=== PATIENT | female | born 1995 | race Caucasian/White ===

== ENCOUNTER 2021-11-05 03:09 | Inpatient (IN) | payer BC, SELFPAY ==
[2021-11-05] VITALS (23 sets, daily range): BP systolic 121–157; BP diastolic 71–89; PULSE 91–111; RESP 12–25; TEMP 36.1–36.9; O2SAT 98–100; BMI 41.8
--- NOTE | ~2021-11-05 | XR_ITS ---
EXAMINATION: XR chest 2V DATE: 11/05/2021 04:09 INDICATION: Shortness of breath. TECHNIQUE: Frontal and lateral views of the chest were obtained. COMPARISON: None. FINDINGS: The chest demonstrates clear lungs without pneumonia, pleural effusion, or pneumothorax. Th e heart size is normal. IMPRESSION: 1. No acute cardiopulmonary disease. Reviewed, dictated and finalized at location A. [facility] [employer] COORDINATOR
--- NOTE | ~2021-11-05 | US_ITS ---
EXAMINATION: US abdomen limited DATE: 11/05/2021 07:30 INDICATION: Acute pancreatitis TECHNIQUE: Multiple grayscale and Doppler ultrasound images of the abdomen were obtained. COMPARISON: None available FINDINGS: Bowel gas obscures visualization of the pancreas. The visualized portions of the pancreas a re unremarkable. The liver is normal with normal echogenicity and echotexture. No surface nodularity. Normal hepatopetal flow in the main portal vein. There is no pericholecystic fluid. There are two po lyps of the gallbladder which measure up to 4 mm. The normal common bile duct measures 4 mm. There wa s no sonographic Evans sign. IMPRESSION: 1. No sonographic correlate for the patient's symptoms. 2. Gallbladder polyps. Reviewed, dictated and finalized at location B. MAKER
--- NOTE | 2021-11-05 03:22 | ECG_ITS ---
Measurements Intervals [place] Rate: 112 P: 26 MN: 155 QRS: -3 QRSD: 85 T: 1 QT: 307 QTc: 420 Interpretive Statements SINUS TACHYCARDIA LOW VOLTAGE QRS PRECORDIAL LEADS BASELINE ARTIFACT BORDERLINE ECG NO PREVIOUS ECG AVAILABLE FOR COMPARISON Electronically Signed On 11-05-2021 14:06:05 [employer] by Diaz Matthews M.D.
--- NOTE | 2021-11-05 03:32 | ED.GENADULT ---
HPI - General Adult General Chief complaint: Chest Pain Stated complaint: chest pain Time Seen by Provider: 11/05/21 03:13 Source: patient and RN notes reviewed Mode of arrival: ambulatory Limitations: no limitations History of Present Illness HPI narrative: This is a 25 year old female approximately 30 weeks GA who presents for evaluation of bilateral flank pain. She woke up this morning with bilateral flank pain. She states her pain has been constant and it feels like a band is wrapped around her chest. She called her OB and it was recommended for her to take tums, pepcid and tylenol. She continued to have pain so she came to ER for evaluation. Her pain was initially severe but she reports it has improved. She reports mild sob due to pain. She also reports nausea. She denies cough, fever, or urinary complaints. She denies any issues with . She denies history of gallbladder disease. Related Data Home Medications Medication Instructions Recorded Confirmed Classic 1 tablet PO DAILY 11/05/21 11/05/21 Allergies Allergy/AdvReac Type Severity Reaction Status Date / Time No Known Allergies Allergy Verified 11/05/21 03:27 Review of Systems Review of Systems: All systems reviewed & are unremarkable except as noted in HPI and below PMFSH Past Medical History Medical History (Updated 11/05/21 @ 04:56 by Ernestina Knapp MD) Patient denies medical problems Social History Social History (Updated 11/05/21 @ 04:35 by Ernestina Knapp MD) Smoking status: Never smoker Alcohol intake: never Exam Const: General: no acute distress and alert Orientation/consciousness: patient oriented x3 Eyes: EOM: EOMs intact bilaterally Resp: Effort & Inspection: normal respiratory effort and no retractions Auscultation: clear to auscultation bilaterally Cardio: Rate: tachycardic Rhythm: regular rhythm Heart sounds: no murmurs GI: GI Palp: Yes Soft to palpation, Yes Tenderness to palpation present (GI) (bilateral upper quadrant), No Guarding due to palpation present (GI) and No Rigid due to palpation Auscultation: normal bowel sounds Other: gravid Back/Spine/Pelvis: Back: no CVA tenderness Skin: General skin exam: normal color Rashes: no rashes Neuro: General: patient oriented x3, moves all extremities and CN's II-XI intact bilaterally Extrem: General: normal to inspection Psych: Mental Status: mental status grossly normal Affect: normal affect Course Reevaluation(s) Reevaluation #1: I performed bedside US , no gallstones seen. On review of labs , patient has pancreatitis. I have discussed diagnosis with patient and . Date: 11/05/21 Time: 04:36 Consultations Consultation #1: I discussed case with DR. Price. He accepts admission on Labor and Delivery and he request hospitalist consultation. Date: 11/05/21 Time: 04:54 Vital Signs Vital signs: Vital Signs Blood Pressure 157/86 H 11/05/21 03:16 Temperature 97.8 F 11/05/21 06:16 Pulse Rate 97 11/05/21 06:16 Respiratory Rate 18 11/05/21 06:16 Blood Pressure 133/74 11/05/21 06:16 Pulse Oximetry 98 11/05/21 05:15 Medical Decision Making Vital Signs Vital Signs: Vital Signs Blood Pressure 157/86 H 11/05/21 03:16 Temperature 97.8 F 11/05/21 06:16 Pulse Rate 97 11/05/21 06:16 Respiratory Rate 18 11/05/21 06:16 Blood Pressure 133/74 11/05/21 06:16 Pulse Oximetry 98 11/05/21 05:15 Lab Data Lab results reviewed: Yes I reviewed the patient's lab results. Result diagrams: 11/05/21 03:25 11/05/21 03:25 Labs: Lab Results 11/05/21 11/05/21 11/05/21 Range/Units 03:25 03:25 03:25 WBC 16.1 H (4.5-10.0) K/mm3 RBC 4.40 (4.2-5.4) M/mm3 Hgb 12.2 (12.0-15.0) g/dL Hct 38.6 (37.0-47.0) % MCV 87.7 (80-100) fl MCH 27.7 (26-34) pg MCHC 31.6 L (32-36) g/dl RDW 13.8 (11.5-14.5) % Plt Count 423 H (
[2021-11-05 03:35] LABS: Basophils Percent Auto 0.2 % (0.2-1.2); Eosinophils Absolute Auto 0.1 K/mm3 (0-0.3); Eosinophils Percent Auto 0.9 % (0-4.4); Hematocrit 38.6 % (37.0-47.0); Hemoglobin 12.2 g/dL (12.0-15.0); Immature Granulocyte Absolute 0.13 K/mm3 (0.00-0.031); Immature Granulocyte Percent A 0.8 % (0-0.5); Lymphocytes Absolute Auto 1.93 K/mm3 (0.9-3.2); Mean Corpuscular HGB Conc 31.6 g/dl (32-36); Mean Corpuscular Hemoglobin 27.7 pg (26-34); Mean Corpuscular Volume 87.7 fl (80-100); Mean Platelet Volume 9.9 fl (7.4-10.4); Monocytes Absolute Auto 0.8 K/mm3 (0.1-0.6); Monocytes Percent Auto 5.2 % (2.6-8.5); Neutrophils Absolute Auto 13.1 K/mm3 (1.3-6.7); Neutrophils Percent Auto 80.9 % (45.5-73.1); Platelet Count Result 423 k/mm3 (150-375); Red Cell Distribution Width 13.8 % (11.5-14.5); White Blood Count 16.1 K/mm3 (4.5-10.0)
[2021-11-05] MEDS: LACTATED RINGERS 1,000 ML 999 ML IV CONT (03:35)
[2021-11-05 03:46] LABS: Add Urine Microscopic? YES; Appearance Urine Cloudy (Clear); Bacteria Urine Trace /hpf; Bilirubin Urine Negative (Negative); Blood Urine Negative (Negative); Color Urine Yellow (Yellow); Glucose Urine UA 2+ mg/dL (Negative); Ketones Urine Trace mg/dL (Negative); Leukocyte Esterase Ur Negative LEU/UL (Negative); Mucus Urine Rare /lpf; Nitrate Urine Negative (Negative); Protein Urine Negative (Negative); RBC Urine 0-2 /hpf (0-2); Specific Grav Ur 1.015 (1.001-1.035); Squamous Epithelial Cell Urine Many /hpf (Few); Urobilinogen Urine Negative mg/dL (<2.0)
[2021-11-05 03:50] LABS: Prothrombin Time 12.7 Seconds (11.1-14.7)
[2021-11-05 03:51] LABS: Partial Thromboplastin Time 29.3 SECONDS (22.3-36.8)
[2021-11-05 04:02] LABS: Troponin I < 0.012 ng/mL (0.000-0.034)
[2021-11-05 04:14] LABS: Alanine Aminotransferase 30 U/L (4-35); Albumin Level 3.9 g/dL (3.5-5.1); Alkaline Phosphatase 119 U/L (38-126); Anion Gap 8 mmol/L (8-16); Aspartate Amino Transferase 60 U/L (14-36); Bilirubin,Total 0.8 mg/dL (0.2-1.3); Blood Urea Nitrogen 8 mg/dL (7-17); Calcium 9.4 mg/dL (8.4-10.2); Carbon Dioxide 23 mmol/L (22-30); Chloride 106 mmol/L (98-107); Estimated CRCL calculation 173 ml/min; Estimated Glomerular Filt Rate > 60; Glucose 118 mg/dL (65-110); Lactate Dehydrogenase 410 U/L (313-618); Potassium 3.9 mmol/L (3.4-5.0); Sodium 137 mmol/L (137-145)
[2021-11-05 04:15] LABS: Lipase 2252 U/L (23-300)
--- NOTE | 2021-11-05 05:31 | OBADM ---
This patient, Kathy Wheeler, admitted to the OB room [facility] for observation. Patient/family oriented to hospital policies and general routines including ID bracelet, bed and alarms, visiting hours, pain management, procedures, bathroom and other care routines, personal items, smoking policy, room service/diet, and visiting hours. Patient/Family are encouraged to report perceived risks to care and to ask questions if they do not understand what they are told or what they should do.
[2021-11-05] MEDS: SODIUM CHLORIDE 0.9% IV 1,000 ML 125 ML IV CONT ×3 (06:20→23:00)
--- NOTE | 2021-11-05 09:43 | PM.IMCN ---
Assessment and Plan Assessment and plan (1) Acute pancreatitis: Qualifiers: Acute pancreatitis complication: unspecified Pancreatitis type: unspecified pancreatitis type Qualified Code(s): K85.90 - Acute pancreatitis without necrosis or infection, unspecified Code(s): K85.90 - Acute pancreatitis without necrosis or infection, unspecified Status: Acute Assessment and Plan: Patient presents with bilateral lower chest bandlike pain of acute onset. Lipase markedly elevated on admission. Abdominal ultrasound showing gallbladder polyps but no other acute findings. The pancreas was obscured by bowel gas. Unable to perform CT. Pain is improved. Consider that she passed a gallstone. Will need to monitor to ensure that her liver enzymes and lipase trend to normal. will start clear liquid diet today and advance as tolerated. Repeat labs in morning. Would recommend general surgery consult timeframe for further evaluation and consideration for cholecystectomy. (2) : Qualifiers: Weeks of gestation: 30 weeks Qualified Code(s): Z3A.30 - 30 weeks gestation of Code(s): Z34.90 - Encounter for supervision of normal , unspecified, unspecified trimester Status: Acute Assessment and Plan: female currently 30 weeks gestational age. Patient states she is having normal movement. Currently being monitored in the OB department with normal heart tones. Glucose noted but felt related to stress rsponse. She does have 2+ glucose in her urie as well. Will add AccuCheks and sliding scale insulin to further assess. Continue vitamin. Further instruction per primary team. (3) Elevated AST (SGOT): Code(s): R74.01 - Elevation of levels of liver transaminase levels Status: Acute Assessment and Plan: On presentation, AST slightly elevated at 60. No concerning findings by ulrasound. Most likely related to above. Will continue to follow-up. This should resolve with resolution of her other symptoms. Further evaluation if needed. (4) Leukopenia: Code(s): D72.819 - Decreased white blood cell count, unspecified Status: Acute Assessment and Plan: White count on admission is 16K with a mild left shift. Chest x-ray clear. Urinalysis not consistent with UTI. Most likely demargination from her acute symptoms. Doubtful this is related to active infection. Continue to follow. Additional Plan Thank you so much for allowing me to be part of this patient's care. Will continue to follow along with you. HPI Data of Consult Consult date: 11/05/21 Requesting Physician: Nitish Price MD Primary Care Provider: Nitish Price MD Consult Narrative Narrative: Kathy Wheeler is a 25 year old female who is 30wks GA here for bilateral lower chest pain and found to have pancreatitis. patient has had morning sickness 1st 20 weeks more recently with complaints hip pain but otherwise no oher significant problems with the . more recently she has been having dyspnea on exertion over the past week or so felt related to the size of her abdomen. She denies any abdominal pain after fatty meals. No nausea or vomiting recently. She was feeling well until around 1:00 a.m. on the morning of admission when she woke with bilateral lower chest pain. It felt like a band under her breasts radiated to the back. It was constant. She called her OB who recommended Pepcid and Tums. No slight benefit with this regiment but then the pain worsened again. Pain never completely subsided. She had nausea but no vomiting. No diarrhea. No lower abdominal pain. No vaginal discharge. No vaginal bleeding. no dysuria or hematuria. No fever or chills. No history of gallbladder disease or pancreatitis. She does have a family history of gallbladder disease with her grandfather and uncle having the gallbladder is removed
[2021-11-05 10:46] LABS: Glucose Point of Care 89 mg/dl (65-105)
--- NOTE | 2021-11-05 17:46 | PM.IMHP ---
H&P: HPI History of Present Illness Date/Time: 11/05/21 17:46 25 y/o G1 at 30 6/7 weeks who was awakened this morning with pain in a tight band around her chest. She came to the ED and was found to have elevated lipase, diagnosed with pancreatitis. A bedside abdominal ultrasound exam elicited epigastric tenderness in the ED. Her pain has since resolved. A subsequent RUQ ultrasound exam in radiology was not painful. She has no pain now. She has good movement. No headaches or visual field change. She has noticed a few elevated bp readings. Chief Complaint: Pain Review of Systems Review of Systems: All systems reviewed & are unremarkable except as noted in HPI and below PMFSH Past Medical History Medical History Patient denies medical problems Surgical History Surgical History No pertinent past surgical history Family History Family History Father Hypertension Mother Hypertension Diabetes mellitus Social History Social History Social History: Essentially a lifelong nonsmoker. No alcohol use currently. No history of drug use. Lives at home with her . They have 2 dogs. She is a full code. Smoking status: Never smoker Alcohol intake: never Meds Home Medications and Allergies Home Medications Medication Instructions Recorded Confirmed Type Classic 1 tablet PO HS 11/05/21 11/05/21 History Allergies Allergy/AdvReac Type Severity Reaction Status Date / Time No Known Allergies Allergy Verified 11/05/21 03:27 Vital Signs Vital Signs - 24 hr 11/05/21 03:16 11/05/21 03:17 11/05/21 03:18 Temperature 36.1 C L Pulse Rate 109 H 111 H Respiratory Rate 12 17 Blood Pressure 157/86 H 157/86 H Pulse Oximetry 100 11/05/21 03:30 11/05/21 03:31 11/05/21 03:41 Temperature Pulse Rate 97 93 101 H Respiratory Rate 20 23 H Blood Pressure 133/89 Pulse Oximetry 11/05/21 03:45 11/05/21 03:46 11/05/21 04:01 Temperature Pulse Rate 95 96 106 H Respiratory Rate 25 H 23 H 20 Blood Pressure 131/82 Pulse Oximetry 11/05/21 04:15 11/05/21 04:30 11/05/21 04:44 Temperature Pulse Rate 96 105 H 94 Respiratory Rate 20 22 H 15 Blood Pressure 141/87 H 141/87 H Pulse Oximetry 11/05/21 04:45 11/05/21 05:15 11/05/21 05:31 Temperature 36.1 C L Pulse Rate 97 93 91 Respiratory Rate 17 20 Blood Pressure 131/80 141/87 H Pulse Oximetry 98 11/05/21 05:44 11/05/21 06:16 11/05/21 08:44 Temperature 36.6 C 36.6 C Pulse Rate 97 98 Respiratory Rate 18 Blood Pressure 133/74 135/84 Pulse Oximetry 11/05/21 12:04 11/05/21 13:01 11/05/21 16:06 Temperature 36.3 C L Pulse Rate 106 H 93 95 Respiratory Rate 18 Blood Pressure 121/76 141/71 H 148/79 H Pulse Oximetry Exam Const: Orientation/consciousness: patient oriented x3 Other: Well-developed, well-nourished female in no acute distress. Neck: Thyroid: thyroid normal Lymphatic: no lymphadenopathy noted (in neck, axilla or inguinal nodes) Resp: Effort & Inspection: normal respiratory effort Auscultation: clear to auscultation bilaterally Cardio: Rate: regular rate Rhythm: regular rhythm Heart sounds: S1 normal heart sound present and S2 normal heart sound present GI: Other: ABD: Soft, nontender, nondistended, gravid. NST good variability. TOCO: no contractions. No guarding or rebound tenderness. No hepatosplenomegaly. : General: Yes no CVA tenderness Other: Deferred. Back/Spine/Pelvis: Back: no CVA tenderness Skin: General skin exam: normal color and no rashes or lesions noted Neuro: General: patient oriented x3 Extrem: Other: Extremities: nontender with no edema Psych: Mental Status: mental status grossly normal Affect: chidi
[2021-11-05] MEDS: FAMOTIDINE 20 MG TABLET PO (20:23)
[2021-11-06 00:06] VITALS: BP 128/71; PULSE 93; TEMP 36.6
[2021-11-06 04:48] VITALS: BP 119/66; PULSE 89; TEMP 36.9
[2021-11-06 05:14] LABS: Alanine Aminotransferase 41 U/L (4-35); Albumin Level 3.1 g/dL (3.5-5.1); Alkaline Phosphatase 111 U/L (38-126); Anion Gap 5 mmol/L (8-16); Aspartate Amino Transferase 43 U/L (14-36); Basophils Percent Auto 0.2 % (0.2-1.2); Blood Urea Nitrogen 3 mg/dL (7-17); Calcium 7.9 mg/dL (8.4-10.2); Carbon Dioxide 20 mmol/L (22-30); Chloride 111 mmol/L (98-107); Eosinophils Absolute Auto 0.2 K/mm3 (0-0.3); Eosinophils Percent Auto 1.7 % (0-4.4); Estimated CRCL calculation 212 ml/min; Estimated Glomerular Filt Rate > 60; Glucose 71 mg/dL (65-110); Hematocrit 31.9 % (37.0-47.0); Hemoglobin 10.2 g/dL (12.0-15.0); Immature Granulocyte Absolute 0.11 K/mm3 (0.00-0.031); Immature Granulocyte Percent A 1.1 % (0-0.5); Lipase 456 U/L (23-300); Lymphocytes Absolute Auto 1.96 K/mm3 (0.9-3.2); Mean Corpuscular Hemoglobin 28.2 pg (26-34); Mean Corpuscular Volume 88.1 fl (80-100); Monocytes Absolute Auto 0.7 K/mm3 (0.1-0.6); Monocytes Percent Auto 6.4 % (2.6-8.5); Neutrophils Absolute Auto 7.4 K/mm3 (1.3-6.7); Neutrophils Percent Auto 71.6 % (45.5-73.1); Platelet Count Result 324 k/mm3 (150-375); Potassium 3.6 mmol/L (3.4-5.0); Red Blood Count 3.62 M/mm3 (4.2-5.4); Red Cell Distribution Width 13.9 % (11.5-14.5); Sodium 136 mmol/L (137-145); White Blood Count 10.3 K/mm3 (4.5-10.0)
[2021-11-06] MEDS: SODIUM CHLORIDE 0.9% IV 1,000 ML 125 ML IV CONT (07:00)
[2021-11-06 07:10] VITALS: TEMP 36.8
[2021-11-06 07:13] VITALS: BP 135/78; PULSE 94
--- NOTE | 2021-11-06 08:10 | PM.IMPN ---
Progress Note: A&P Assessment and Plan (1) Acute pancreatitis: Qualifiers: Acute pancreatitis complication: unspecified Pancreatitis type: unspecified pancreatitis type Qualified Code(s): K85.90 - Acute pancreatitis without necrosis or infection, unspecified Code(s): K85.90 - Acute pancreatitis without necrosis or infection, unspecified Status: Acute Assessment and Plan: Patient presents with bilateral lower chest bandlike pain of acute onset. Lipase markedly elevated on admission. Abdominal ultrasound showing gallbladder polyps but no other acute findings. The pancreas was obscured by bowel gas. Unable to perform CT. Pain has resolved. Consider that she passed a gallstone or possibly from sludge. AST mildly elevated at 60 but better today. ALT up slightly but felt this was in response to the original event and just lagging behind. Toelrating Full liquids. Lipase down to 456. Advance diet to low fat diet. Would recommend general surgery consult timeframe for further evaluation and consideration for cholecystectomy. (2) : Qualifiers: Weeks of gestation: 30 weeks Qualified Code(s): Z3A.30 - 30 weeks gestation of Code(s): Z34.90 - Encounter for supervision of normal , unspecified, unspecified trimester Status: Acute Assessment and Plan: female currently 30 weeks gestational age. Normal heart tones per RN. BP noted on admission but improved now. Elevated BP probably related to pain. Glucose noted but felt related to stress response and now normal on repeat. Continue AccuCheks and sliding scale insulin to further assess. Patient is being evaluated for preeclampsia. Continue vitamin. Further instruction per primary team. (3) Elevated AST (SGOT): Code(s): R74.01 - Elevation of levels of liver transaminase levels Status: Acute Assessment and Plan: On presentation, AST slightly elevated at 60. No concerning findings by ultrasound to explain the elevated liver test. Most likely related to above with either passed GS or fron biliary sludge. AST better at 43. ALT up to 41 but probably also related to above and just lagging behind. Pre-eclampsia being considered as well. Will continue to follow-up. This should continue to resolve with resolution of her other symptoms. Further evaluation if needed. (4) Leukopenia: Code(s): D72.819 - Decreased white blood cell count, unspecified Status: Acute Assessment and Plan: White count on admission is 16K with a mild left shift. Chest x-ray clear. Urinalysis not consistent with UTI. Most likely demargination from her acute symptoms. Doubtful this is related to active infection. Repeat WBC better. Subjective Date/time seen: 11/06/21 08:10 Interval history: 25yo female with IUP at 30weeks here for abdominal pain and found to have pancreatitis. Patient no longer having abdominal pain. She is passing flatus but no BMs. She denies n/v. She is tolerating the current diet with symptoms. Exam Narrative: AF 98.3 135/78 94 18 98% ra Gen - NARD Chest - CTA bilaterally. nml RR CV - RRR. S1-S2 Abd - abdomen was soft. abdomen. Nontender. +BS. Ext - no pedal edema. Psych - normal mood and affect. Patient is pleasant and cooperative. Skin - warm and dry. Objective Data Vital Signs Vital Signs: Vital Signs - 24 hr 11/05/21 08:44 11/05/21 12:04 11/05/21 13:01 Temperature Pulse Rate 98 106 H 93 Respiratory Rate Blood Pressure 135/84 121/76 141/71 H 11/05/21 16:06 11/05/21 19:38 11/05/21 20:00 Temperature 97.3 F L 98.5 F Pulse Rate 95 100 Respiratory Rate 18 Blood Pressure 148/79 H 129/78 11/06/21 00:06 11/06/21 04:48 11/06/21 07:10 Temperature 97.8 F 98.4 F 98.3 F Pulse Rate 93 89 Respiratory Rate Blood Pressure 128/71 119/66 11/06/21 07:13 Temperature Pulse Rate
--- NOTE | 2021-11-06 11:36 | PM.DS ---
DS: Admitting Diagnosis Discharge Date 11/06/21 Admitting Diagnosis acute pancreatitis intrauterine in the 3rd trimester DS: Summary Hospital Course Hospital Course: 25 y/o G1 at 31 weeks who presented with abdominal and chest pain. She came to the ED and was found to have elevated lipase, diagnosed with pancreatitis. A bedside abdominal ultrasound exam elicited epigastric tenderness in the ED. A subsequent RUQ ultrasound exam in radiology was not painful. She has no pain now. She has good movement. No headaches or visual field change. She has noticed a few elevated bp readings. Pt elevated enzymes have trended downward. She is now tolerating a low fat diet and denies any further pain. Status at Discharge Functional status at discharge: independent ambulation Overall status at discharge: patient is progressing back to baseline Time Spent with Patient Time attestation: Total time spent providing and/or coordinating discharge services: Time spent: Less than 30 minutes Exam Const: General: cooperative and healthy appearing Eyes: General: appearance normal, both eyes and all related structures Resp: Effort & Inspection: normal respiratory effort and able to speak in complete sentences Cardio: Rate: regular rate Rhythm: regular rhythm GI: Inspection: normal to inspection, non-distended and other (Gravid) GI Palp: No abdominal tenderness, Yes Soft to palpation, No Tenderness to palpation present (GI), No Guarding due to palpation present (GI) and No Rebound tenderness present Skin: General skin exam: normal color Neuro: General: patient oriented x3 DS: Data Data Completed and Pending Labs on day of discharge: Labs from last 24 hours 11/06/21 11/06/21 04:56 04:56 WBC 10.3 H RBC 3.62 L Hgb 10.2 L Hct 31.9 L MCV 88.1 MCH 28.2 MCHC 32.0 RDW 13.9 Plt Count 324 MPV 10.0 Immature Gran % (Auto) 1.1 H Neut % (Auto) 71.6 Lymph % (Auto) 19.0 Kaufman % (Auto) 6.4 Eos % (Auto) 1.7 Baso % (Auto) 0.2 Lymph # (Auto) 1.96 [place] # (Auto) 0.7 H Eos # (Auto) 0.2 Baso # (Auto) 0.0 Abs Immat Gran (auto) 0.11 H Absolute Neuts (auto) 7.4 H Absolute Nucleated RBC 0.0 Nucleated RBC % 0.0 Sodium 136 L Potassium 3.6 Chloride 111 H Carbon Dioxide 20 L Anion Gap 5 L BUN 3 L D Creatinine 0.40 L Estim Creat Clear Calc 212 Estimated GFR > 60 Glucose 71 Calcium 7.9 L Total Bilirubin 1.0 AST 43 H ALT 41 H Alkaline Phosphatase 111 Total Protein 6.0 L Albumin 3.1 L Lipase 456 H Discharge Plan Discharge Consulting providers: Rivera Daigle Discharging Clinician: David Ladd Patient Disposition: Home, Self-Care Activity: as tolerated Diet: low fat Discharge Instructions: OB ANTEPARTUM DISCHARGE INSTRUCTIONS This information is given to help you properly care for yourself at home after your discharge from the hospital. Follow these instructions until your doctor tells you otherwise. DIET: Eat Three Well Balanced Meals per Day Small Frequent Feedings Drink at Least Eight 8-Ounce Glasses of Caffeine-Free Beverages Daily Low Fat Advance As Tolerated Additional Diet Instructions: ACTIVITY: As Tolerated Additional Activity Instructions: RETURN TO LABOR AND DELIVERY IF YOU HAVE: Any Change In Baby's Normal Movement Pattern Any Leakage of Fluid More than 6 Contractions in an Hour Vaginal Bleeding Worsening Signs of Hypertension in as per Handout Additional Reasons to Return to Labor and Delivery: Contractions may feel like abdominal pain, tightening, cramping, pressure, back ache, or thigh ache. 24 Hour Urine Collection: Continue 24 hour urine collection until 6:30pm. When collection is completed, return specimen to the [facility]. See handout for 24 hour urine collection. OTHER INSTRUCTIONS: FOLLOW-UP CARE: Keep Next Scheduled Appointment To see in/on
[2021-11-06 13:17] VITALS: BP 126/85; PULSE 99
== END 2021-11-06 14:05 | disposition home or self-care (01) | DRG 831 ==
LOC: ANHED 04:56 → ANHOBPP 04:58
PROVIDERS: Admitting Provider Obstetrics & Gynecology; Emergency Provider General Practice; PCP Obstetrics & Gynecology; Visit Provider Obstetrics & Gynecology
DX: O99.613 Diseases of the digestive system complicating pregnancy, third trimester (principal); K85.90 Acute pancreatitis without necrosis or infection, unspecified; Z3A.30 30 weeks gestation of pregnancy; D72.819 Decreased white blood cell count, unspecified; R03.0 Elevated blood-pressure reading, without diagnosis of hypertension; O99.891 Other specified diseases and conditions complicating pregnancy
CPT/HCPCS: 36415; 71046; 76705; 80053; 81001; 82948; 83615; 83690; 84484; 85025; 85610; 85730; 93005; 96361; 99285; A9270; J0131; J7030; J7120

== ENCOUNTER 2021-11-06 19:29 | Outpatient (CLI) | payer BC, SELFPAY ==
[2021-11-06 20:04] LABS: Collection Time Urine 24 HOURS
[2021-11-06 20:08] VITALS: BMI 41.6
[2021-11-06 20:15] LABS: Specific Gravity Ur 1.015
[2021-11-06 20:17] LABS: Total Volume 24 Hour Urine 4200 ml
[2021-11-06 20:24] LABS: Creatinine Clearance Urine 278.7 ml/min (75-125); Creatinine Urine 46.7 mg/dL; Patient Weight 242 Lbs; Total Protein Urine 24 Hr 378 mg/24hr (28-141); Total Protein Urine Random 9 mg/dL
== END 2021-11-06 19:30 | disposition home or self-care (01) ==
LOC: ANHOBOP 19:31
PROVIDERS: PCP Obstetrics & Gynecology; Visit Provider Obstetrics & Gynecology
DX: O16.3 Unspecified maternal hypertension, third trimester (principal); Z3A.30 30 weeks gestation of pregnancy
CPT/HCPCS: 81050; 82575; 84156

== ENCOUNTER 2021-12-18 10:35 | Outpatient (CLI) | payer BC, SELFPAY ==
[2021-12-18] VITALS (7 sets, daily range): BP systolic 122–134; BP diastolic 80–95; PULSE 95–111
[2021-12-18 11:14] LABS: Basophils Percent Auto 0.2 % (0.2-1.2); Eosinophils Absolute Auto 0.1 K/mm3 (0-0.3); Eosinophils Percent Auto 1.2 % (0-4.4); Hematocrit 35.4 % (37.0-47.0); Hemoglobin 11.3 g/dL (12.0-15.0); Immature Granulocyte Absolute 0.09 K/mm3 (0.00-0.031); Immature Granulocyte Percent A 0.8 % (0-0.5); Lymphocytes Absolute Auto 1.54 K/mm3 (0.9-3.2); Lymphocytes Percent Auto 14.1 % (18.3-44.2); Mean Corpuscular HGB Conc 31.9 g/dl (32-36); Mean Corpuscular Hemoglobin 26.8 pg (26-34); Mean Corpuscular Volume 84.1 fl (80-100); Mean Platelet Volume 10.8 fl (7.4-10.4); Monocytes Absolute Auto 0.9 K/mm3 (0.1-0.6); Monocytes Percent Auto 7.9 % (2.6-8.5); Neutrophils Absolute Auto 8.3 K/mm3 (1.3-6.7); Neutrophils Percent Auto 75.8 % (45.5-73.1); Platelet Count Result 357 k/mm3 (150-375); Red Blood Count 4.21 M/mm3 (4.2-5.4); Red Cell Distribution Width 14.5 % (11.5-14.5); White Blood Count 10.9 K/mm3 (4.5-10.0)
[2021-12-18 11:20] LABS: Mucus Urine Rare /lpf; RBC Urine 0-2 /hpf (0-2); Squamous Epithelial Cell Urine Many /hpf (Few); WBC Urine 0-3 /hpf (0-3)
[2021-12-18 11:26] LABS: Alanine Aminotransferase 13 U/L (4-35); Albumin Level 3.6 g/dL (3.5-5.1); Alkaline Phosphatase 120 U/L (38-126); Anion Gap 9 mmol/L (8-16); Aspartate Amino Transferase 23 U/L (14-36); Bilirubin,Total 0.5 mg/dL (0.2-1.3); Blood Urea Nitrogen 6 mg/dL (7-17); Carbon Dioxide 18 mmol/L (22-30); Chloride 108 mmol/L (98-107); Estimated Glomerular Filt Rate > 60; Glucose 85 mg/dL (65-110); Sodium 135 mmol/L (137-145); Uric Acid 3.7 mg/dL (2.5-7.5)
[2021-12-18 11:27] LABS: Creatinine Urine 129.7 mg/dL; Total Protein Urine Random 7 mg/dL; Ur Ttl Prot Creatinine Ratio 0.05 mg/mg (0-0.20)
[2021-12-18 11:45] LABS: Appearance Urine Clear (Clear); Color Urine Light Yellow (Yellow); Glucose Urine UA 1+ mg/dL (Negative)
[2021-12-18 11:47] LABS: Protein Urine Negative (Negative); Specific Grav Ur 1.015 (1.001-1.035); pH Urine 5.5 (5.0-9.0)
[2021-12-18 11:48] LABS: Add Urine Microscopic? YES; Bilirubin Urine Negative (Negative); Blood Urine Negative (Negative); Ketones Urine Negative (Negative); Leukocyte Esterase Ur Negative LEU/UL (NEGATIVE); Nitrate Urine Negative (Negative); Urobilinogen Urine Negative mg/dL (<2.0)
--- NOTE | 2021-12-18 12:25 | PC.NURSE ---
Dr Price on unit, BP and labs reviewed. OK to dc home.
[2021-12-18 12:53] LABS: Bacteria Urine Trace /hpf
== END 2021-12-18 12:30 | disposition home or self-care (01) ==
LOC: ANHOBOP 10:40 → ANHOBPP 10:40
PROVIDERS: PCP Student in an Organized Health Care Education/Training Program; Visit Provider Obstetrics & Gynecology
DX: O13.9 Gestational [pregnancy-induced] hypertension without significant proteinuria, unspecified trimester (principal); Z3A.00 Weeks of gestation of pregnancy not specified
CPT/HCPCS: 36415; 59025; 80053; 81001; 82570; 84156; 84550; 85025; 87086; 87088; 99199

== ENCOUNTER 2022-01-04 15:59 | Inpatient (IN) | payer BC, SELFPAY ==
[2022-01-04] VITALS (13 sets, daily range): BP systolic 139–167; BP diastolic 88–110; PULSE 81–106; TEMP 36.2; BMI 42.7
--- NOTE | 2022-01-04 16:34 | LDADM ---
This patient, Kathy Wheeler, was admitted to Labor/Delivery/Recovery 105 on 01/04/22 at 15:59. Plans for labor, pain management and were discussed with patient. Patient/family oriented to hospital policies and general routines including ID bracelet, bed and alarms, visiting hours, pain management, procedures, bathroom and other care routines, personal items, smoking policy, room service/diet and guest tray routines, infant security routines, and visiting hours. Patient/Family are encouraged to report perceived risks to care and to ask questions if they do not understand what they are told or what they should do. See [facility] for further documentation.
[2022-01-04 17:00] LABS: Basophils Percent Auto 0.2 % (0.2-1.2); Eosinophils Absolute Auto 0.2 K/mm3 (0-0.3); Eosinophils Percent Auto 1.7 % (0-4.4); Hematocrit 35.1 % (37.0-47.0); Hemoglobin 11.1 g/dL (12.0-15.0); Immature Granulocyte Absolute 0.09 K/mm3 (0.00-0.031); Immature Granulocyte Percent A 0.9 % (0-0.5); Lymphocytes Percent Auto 18.6 % (18.3-44.2); Mean Corpuscular HGB Conc 31.6 g/dl (32-36); Mean Corpuscular Hemoglobin 26.9 pg (26-34); Mean Platelet Volume 10.9 fl (7.4-10.4); Monocytes Absolute Auto 0.8 K/mm3 (0.1-0.6); Monocytes Percent Auto 8.7 % (2.6-8.5); Neutrophils Absolute Auto 6.8 K/mm3 (1.3-6.7); Neutrophils Percent Auto 69.9 % (45.5-73.1); Platelet Count Result 372 k/mm3 (150-375); Red Blood Count 4.13 M/mm3 (4.2-5.4); Red Cell Distribution Width 15.3 % (11.5-14.5); White Blood Count 9.7 K/mm3 (4.5-10.0)
[2022-01-04] MEDS: DINOPROSTONE 10 MG VAG INSERT VAGINAL (17:26)
[2022-01-04 18:08] LABS: Alanine Aminotransferase 15 U/L (6-35); Albumin Level 3.8 g/dL (3.5-5.1); Alkaline Phosphatase 141 U/L (38-126); Anion Gap 7 mmol/L (8-16); Aspartate Amino Transferase 31 U/L (14-36); Bilirubin,Total 0.5 mg/dL (0.2-1.3); Blood Urea Nitrogen 7 mg/dL (7-17); Calcium 8.9 mg/dL (8.4-10.2); Carbon Dioxide 16 mmol/L (22-30); Chloride 109 mmol/L (98-107); Estimated CRCL calculation 175 ml/min; Estimated Glomerular Filt Rate > 60; Glucose 83 mg/dL (65-110); Potassium 4.3 mmol/L (3.4-5.0); Sodium 132 mmol/L (137-145); Uric Acid 3.6 mg/dL (2.5-7.5)
[2022-01-04 18:23] LABS: HIV 1/2 Ab P24 Ag Result Negative (Negative)
--- NOTE | 2022-01-04 18:41 | WPDANESEPP ---
Anes - Eval Pre Procedure Date/Time: 01/04/22 18:41 Pre Op Diagnosis: IOL Patient Data Age: 26 Gender: F Height: 1.63 m Weight: 113 kg Last Vital Signs Temp 36.2 C L 01/04/22 16:42 Pulse 81 01/04/22 18:31 BP 141/92 H 01/04/22 18:31 Allergies Allergy/AdvReac Type Severity Reaction Status Date / Time No Known Allergies Allergy Verified 12/11/21 12:34 Home Medications Medication Instructions Recorded Confirmed Type Classic 1 tablet PO HS 11/05/21 01/04/22 History Laboratory Tests 01/04/22 01/04/22 01/04/22 16:51 16:51 16:51 WBC 9.7 K/mm3 K/mm3 (4.5-10.0) RBC 4.13 M/mm3 L M/mm3 (4.2-5.4) Hgb 11.1 g/dL L g/dL (12.0-15.0) Hct 35.1 % L % (37.0-47.0) MCV 85.0 fl fl (80-100) MCH 26.9 pg pg (26-34) MCHC 31.6 g/dl L g/dl (32-36) RDW 15.3 % H % (11.5-14.5) Plt Count 372 k/mm3 k/mm3 (150-375) MPV 10.9 fl H fl (7.4-10.4) Immature Gran % (Auto) 0.9 % H % (0-0.5) Neut % (Auto) 69.9 % % (45.5-73.1) Lymph % (Auto) 18.6 % % (18.3-44.2) Frio % (Auto) 8.7 % H % (2.6-8.5) Eos % (Auto) 1.7 % % (0-4.4) Baso % (Auto) 0.2 % % (0.2-1.2) Lymph # (Auto) 1.80 K/mm3 K/mm3 (0.9-3.2) Frio # (Auto) 0.8 K/mm3 H K/mm3 (0.1-0.6) Eos # (Auto) 0.2 K/mm3 K/mm3 (0-0.3) Baso # (Auto) 0.0 K/mm3 K/mm3 (0.0-0.1) Abs Immat Gran (auto) 0.09 K/mm3 H K/mm3 (0.00-0.031) Absolute Neuts (auto) 6.8 K/mm3 H K/mm3 (1.3-6.7) Absolute Nucleated RBC 0.0 K/mm3 K/mm3 (0.0-0.012) Nucleated RBC % 0.0 % % (0.0-0.2) Sodium Potassium Chloride Carbon Dioxide Anion Gap BUN Creatinine Estim Creat Clear Calc Estimated GFR Glucose Uric Acid Calcium Total Bilirubin AST ALT Alkaline Phosphatase Total Protein Albumin RPR Pending HIV 1&2 Ab/P24 Ag 4thGn Blood Type O Positive Antibody Screen Negative 01/04/22 01/04/22 17:11 17:11 WBC RBC Hgb Hct MCV MCH MCHC RDW Plt Count MPV Immature Gran % (Auto) Neut % (Auto) Lymph % (Auto) Frio % (Auto) Eos % (Auto) Baso % (Auto) Lymph # (Auto) Frio # (Auto) Eos # (Auto) Baso # (Auto) Abs Immat Gran (auto) Absolute Neuts (auto) Absolute Nucleated RBC Nucleated RBC % Sodium 132 mmol/L L mmol/L (137-145) Potassium 4.3 mmol/L mmol/L (3.4-5.0) Chloride 109 mmol/L H mmol/L (98-107) Carbon Dioxide 16 mmol/L L mmol/L (22-30) Anion Gap 7 mmol/L L mmol/L (8-16) BUN 7 mg/dL mg/dL (7-17) Creatinine 0.50 mg/dL L mg/dL (0.7-1.0) Estim Creat Clear Calc 175 ml/min ml/min Estimated GFR > 60 (59 - ) Glucose 83 mg/dL mg/dL (65-110) Uric Acid 3.6 mg/dL mg/dL (2.5-7.5) Calcium 8.9 mg/dL mg/dL (8.4-10.2) Total Bilirubin 0.5 mg/dL mg/dL (0.2-1.3) AST 31 U/L U/L (14-36) ALT 15 U/L U/L (6-35) Alkaline Phosphatase 141 U/L H U/L (38-126) Total Protein 7.0 g/dL g/dL (6.3-8.2) Albumin 3.8 g/dL g/dL (3.5-5.1) RPR HIV 1&2 Ab/P24 Ag 4thGn Negative (Negative) Blood Type Antibody Screen Patient hx anesthesia problems: none Family hx anesthesia problems: none Results Review: All pre-operative results and documents have been reviewed as part of the pre-operative evaluation.
[2022-01-05] VITALS (165 sets, daily range): BP systolic 81–156; BP diastolic 38–129; PULSE 25–156; RESP 18; TEMP 36.1–36.8; O2SAT 85–100
[2022-01-05] MEDS: FAMOTIDINE 20 MG TABLET PO (00:52)
[2022-01-05] MEDS: LACTATED RINGERS 1,000 ML 125 ML IV CONT ×4 (06:42→13:37)
[2022-01-05] MEDS: OXYTOCIN 30 UNITS/NS 500 ML 30 UNITS/500 ML BAG 6 UNITS IV CONT (06:44)
--- NOTE | 2022-01-05 08:40 | WPDOBADMIT ---
Obstetrics - Admit Note Admission Note: record reviewed. Additions to the history and/or subsequent changes in the physical findings follow. 26 y/o G1 at 39 weeks at 39 4/7 weeks here for induction of labor. GBS neg. Cervidil overnight, has been withdrawn. Now receiving oxytocin. AVSS NST reactive TOCO: contractions irregularly ABD soft, nontender, gravid, vertex EXT nontender Cervix 3/50/-2. AROM with clear fluid. A: IUP at term. P: Oxytocin. Anticipate .
--- NOTE | 2022-01-05 13:25 | PM.OBPNLAB ---
Pain Control Date/time seen: 01/05/22 13:25 Comfortable with epidural. AVSS NST reactive TOCO: contractions every 2-3 min Cervix /0 Continue labor.
[2022-01-05] MEDS: ONDANSETRON INJ 4 MG/2 ML VIAL IV PUSH (13:58)
--- NOTE | 2022-01-05 16:58 | PM.OBPNLAB ---
Pain Control Date/time seen: 01/05/22 16:58 Comfortable. AVSS NST reactive TOCO: contractions every 2-3 min Cervix C/+1 Begin pushing.
--- NOTE | 2022-01-05 19:01 | PM.OBPRVD ---
OB - Delivery Note Procedure Delivery date: 01/05/22 Procedure: Induction of labor with Induction method: Per Cervidil Protocol Delivery augmentation: Rupture of Membranes and Pitocin Delivery monitor: External FHT, External Uterine and Internal Uterine Route of delivery: Laceration Description: Perineal - 2nd Degree Delivery repair: vicryl (3-0) Specimen: Yes (cord blood, placenta) Quantitative Blood Loss (ml): 140 Anesthesia type: Epidural Disposition: PACU Complications: None Narrative: 26 y/o G1 at 39 4/7 weeks gestation who presented to the hospital for induction of labor. Cervidil was placed overnight, then withdrawn in the morning. Oxytocin was administered intravenously. Amniotomy was performed with return of clear fluid. She received an epidural for pain control. Her labor progressed and her cervix dilated completely. Meconium stained fluid was noted at this point, and the nursery was made aware. She pushed with good effort and delivered the 's head to the perineum, followed by the body. The nose and mouth were bulb suctioned. After a delay, the cord was clamped and cut. The was handed off the field. Cord blood was collected. The placenta delivered spontaneously and was grossly normal in appearance. The usual 3 vessel cord was noted. A second degree midline perineal laceration was sustained. This was reapproximated using 3 0 Vicryl in the usual layered fashion. Excellent hemostasis resulted as did excellent reapproximation of the normal anatomy. Needle and instrument counts were correct. The patient was taken to recovery room in stable condition. The infant went to the nursery in stable condition. I was present and scrubbed for the entire delivery. [place] Baby Date of : 01/05/22 Time of : 18:27 Weeks of gestation at delivery: 39 Infant gender: Male Weight (pounds): 8 presentation: vertex position: Right Occiput Anterior Placenta delivery description: Spontaneous and Normal Configuration Cord Vessel Description: 3 Vessels and Delayed Cord Clamping score one minute: 8 score five minutes: 9
--- NOTE | 2022-01-05 19:03 | P.DS_ITS ---
DS: Admitting Diagnosis Discharge Date 01/07/22 Admitting Diagnosis IUP at 39 4/7 weeks DS: Discharge Diagnosis Discharge Diagnosis (1) (normal spontaneous vaginal delivery): Code(s): O80 - Encounter for full-term uncomplicated delivery Status: Acute OB - DS: Summary OB Procedures : None OB Procedures Intrapartum: Spontaneous Vag Delivery OB Procedures: : None Discharge Plan Discharge Attending physician on discharge: Nitish Price Discharging Clinician: Nitish Price Patient Disposition: Home, Self-Care Activity: pelvic rest Diet: regular Discharge Instructions: Call or return if temperature above 100.4? F, increased abdominal pain, incre ased vaginal bleeding or any new problems. Stand Alone Forms: General Discharge Information Follow-up/Referrals: Nitish Price MD [Physician] - 6 Weeks Discharge Medications: New ibuprofen 600 mg tablet 600 mg PO Q6H PRN (Reason: cramps) Qty: 30 RF: 0 ferrous sulfate 325 mg (65 mg iron) tablet 325 mg PO DAILY Qty: 30 RF: 0 Continued Classic 1 tablet PO HS RF: 0 Date of admission: 01/04/22 15:59 Primary Care Provider: Tiffany,Colton Admitting Provider: Nitish Price Attending physician on admission: Nitish Price Condition: Stable
[2022-01-05] MEDS: ACETAMINOPHEN 325 MG TABLET 650 MG PO (20:50)
[2022-01-05] MEDS: WITCH HAZEL 40 PADS 1 PAD TOPICAL (21:25)
[2022-01-05] MEDS: BENZOCAINE 20% AER SPR (*SP) 56 GM CAN 1 SPRAY TOPICAL (21:25)
--- NOTE | 2022-01-05 21:28 | OBPPTRN ---
Patient transferred to post room #286 via W/C. Support person present. Oriented to unit, room, information board, rooming in, admission packet and security measures. Patient verbalizes understanding.
--- NOTE | 2022-01-05 21:28 | PC.NURSE ---
Infant transferred to PP Rm. 286 via cradle alongside parents
[2022-01-05] MEDS: IBUPROFEN 600 MG TABLET PO (23:54)
[2022-01-05] MEDS: DIBUCAINE 1% OINTMENT 30 GM TUBE 1 APPLIC TOPICAL (23:55)
[2022-01-05] MEDS: LANOLIN (LANSINOH) 7.5 GM CREAM 1 APPLIC TOPICAL (23:55)
[2022-01-06 03:45] VITALS: BP 136/84; PULSE 98; RESP 16; TEMP 36.7; O2SAT 99
[2022-01-06] MEDS: ACETAMINOPHEN 325 MG TABLET 650 MG PO (04:40)
[2022-01-06] MEDS: TETANUS,DIPHTHERIA,AC PERTUSSIS ADULT (0.5 ML) BOOSTRIX IM (04:43)
[2022-01-06 04:53] LABS: Hematocrit 30.3 % (37.0-47.0); Hemoglobin 9.6 g/dL (12.0-15.0)
[2022-01-06 07:03] LABS: Rapid Plasma Reagin Non-Reactive (NonReactive)
--- NOTE | 2022-01-06 09:00 | PM.OBPNVD ---
OB - PN: Subj Subjective Date/time seen: 01/06/22 0900 Narrative: Pain OK. Would like circumcision for son. OB - PN: Obj Data Labs CBC & Chem 7: 01/06/22 03:47 01/04/22 17:11 Labs: Laboratory Results - last 24 hr 01/04/22 01/06/22 16:51 03:47 Hgb 9.6 L Hct 30.3 L RPR Non-reactive OB - PN A/P Plan Comments: A: PPD#1, doing well. P: Routine care. Reviewed circ. Exam Psych: Other: AVSS ABD soft, nontender, fundus firm EXT nontender
[2022-01-06] MEDS: POLYSACCHARIDE IRON COMPLEX 150 MG CAPSULE PO ×2 (09:47→16:50)
[2022-01-06] MEDS: MULTIVIT/MIN/PREN/FOL AC/IRON TABLET 1 TAB PO (09:47)
[2022-01-06] MEDS: IBUPROFEN 600 MG TABLET PO ×2 (09:48→16:51)
--- NOTE | 2022-01-06 10:25 | WPDANLDPN2 ---
Anes-Prog Note L&D Date/Time: 01/06/22 10:25 Comfortable throughout: labor and delivery Neuraxial method: epidural Epidural/Spinal procedure site: clean & non-tender Neuro status: Neuro function grossly intact. Cardiovascular status: normal Respiratory status: normal Airway patency: baseline Mental status: baseline Post-Op hydration status: normal Vital Signs: Last Vital Signs Temp 98.1 F 01/06/22 03:45 Pulse 98 01/06/22 03:45 Resp 16 01/06/22 03:45 BP 136/84 01/06/22 03:45 Pulse Ox 99 01/06/22 03:45 Pain score (VAS): 0 I/O: Intake & Output 01/05/22 01/06/22 01/06/22 23:59 07:59 15:59 Intake Total 1000 400 Output Total 140 Balance 860 400 Post-procedural complaints: other (pt states she has an area to left upper thigh that feels numb . denies motor deficit) Patient feedback: unlPatient satisfied with anesthetic care.
[2022-01-06 11:00] VITALS: BP 146/90; PULSE 84; RESP 18; TEMP 36.9; O2SAT 100
[2022-01-06 16:51] VITALS: BP 151/103; PULSE 86; RESP 16; TEMP 36.6; O2SAT 98
[2022-01-06] MEDS: DOCUSATE SODIUM 100 MG CAPSULE PO (16:51)
[2022-01-06 18:00] VITALS: BP 154/106
[2022-01-06 18:30] VITALS: BP 148/100; BP 151/105; PULSE 84; RESP 18; TEMP 36.7
[2022-01-06 18:45] VITALS: BP 142/94
[2022-01-07] VITALS: BP 148/96; PULSE 85; RESP 18; TEMP 36.6
[2022-01-07] MEDS: IBUPROFEN 600 MG TABLET PO ×2 (00:15→07:51)
[2022-01-07 04:00] VITALS: BP 137/95; PULSE 75; RESP 18; TEMP 36.5
[2022-01-07 05:05] LABS: Hematocrit 28.1 % (37.0-47.0); Hemoglobin 9.2 g/dL (12.0-15.0); Mean Corpuscular HGB Conc 32.7 g/dl (32-36); Mean Corpuscular Hemoglobin 27.7 pg (26-34); Mean Corpuscular Volume 84.6 fl (80-100); Mean Platelet Volume 10.3 fl (7.4-10.4); Platelet Count Result 323 k/mm3 (150-375); Red Blood Count 3.32 M/mm3 (4.2-5.4); Red Cell Distribution Width 15.7 % (11.5-14.5); White Blood Count 13.1 K/mm3 (4.5-10.0)
[2022-01-07 05:16] LABS: Alanine Aminotransferase 12 U/L (6-35); Albumin Level 2.9 g/dL (3.5-5.1); Alkaline Phosphatase 95 U/L (38-126); Anion Gap 6 mmol/L (8-16); Aspartate Amino Transferase 22 U/L (14-36); Bilirubin,Total 0.3 mg/dL (0.2-1.3); Blood Urea Nitrogen 6 mg/dL (7-17); Carbon Dioxide 21 mmol/L (22-30); Chloride 108 mmol/L (98-107); Estimated CRCL calculation 148 ml/min; Estimated Glomerular Filt Rate > 60; Glucose 79 mg/dL (65-110); Potassium 3.6 mmol/L (3.4-5.0); Sodium 135 mmol/L (137-145); Uric Acid 4.1 mg/dL (2.5-7.5)
[2022-01-07] MEDS: DOCUSATE SODIUM 100 MG CAPSULE PO (07:50)
[2022-01-07] MEDS: POLYSACCHARIDE IRON COMPLEX 150 MG CAPSULE PO (07:50)
[2022-01-07 08:10] VITALS: BP 133/83; PULSE 90; RESP 18; TEMP 37.4; O2SAT 100
[2022-01-07] MEDS: ACETAMINOPHEN 325 MG TABLET 650 MG PO (11:49)
--- NOTE | 2022-01-07 13:04 | PM.OBPNVD ---
OB - PN: Subj Subjective Date/time seen: 01/07/22 13:04 Narrative: Pain OK. Would like to go home. OB - PN: Obj Data Labs CBC & Chem 7: 01/07/22 04:32 01/07/22 04:32 Labs: Laboratory Results - last 24 hr 01/07/22 01/07/22 04:32 04:32 WBC 13.1 H RBC 3.32 L Hgb 9.2 L Hct 28.1 L MCV 84.6 MCH 27.7 MCHC 32.7 RDW 15.7 H Plt Count 323 MPV 10.3 Sodium 135 L Potassium 3.6 Chloride 108 H Carbon Dioxide 21 L Anion Gap 6 L BUN 6 L Creatinine 0.60 L Estim Creat Clear Calc 148 Estimated GFR > 60 Glucose 79 Uric Acid 4.1 Calcium 8.0 L Total Bilirubin 0.3 AST 22 ALT 12 Alkaline Phosphatase 95 Total Protein 6.0 L Albumin 2.9 L OB - PN A/P Plan Comments: A: PPD#2, doing well. P: Home to f/u 6 weeks. Exam Psych: Other: AVSS ABD soft, nontender, fundus firm EXT nontender
--- NOTE | 2022-01-07 18:28 | PC.NURSE ---
0930 Breast feeding note; stopped in to visit mother; baby was at breast, and she had drape over baby. She reported baby was nursing well, and they were planning on discharge home today. She had no questions or concerns for nurse at this time. Mother has Mother-baby guide for home reference and office contact information and was encouraged to call as needed.
[2022-01-08 10:32] VITALS: BP 146/93; PULSE 79; RESP 20; TEMP 36.7; O2SAT 100
== END 2022-01-07 14:15 | disposition home or self-care (01) | DRG 807 ==
LOC: ANHLDR 01-05 19:04 → ANHOB2 01-05 21:39
PROVIDERS: Admitting Provider Obstetrics & Gynecology; PCP Student in an Organized Health Care Education/Training Program; Visit Provider Obstetrics & Gynecology
DX: O77.0 Labor and delivery complicated by meconium in amniotic fluid (principal); Z37.0 Single live birth; Z3A.39 39 weeks gestation of pregnancy; O36.8330 Maternal care for abnormalities of the fetal heart rate or rhythm, third trimester, not applicable or unspecified; O70.1 Second degree perineal laceration during delivery
CPT/HCPCS: 36415; 80053; 84550; 85014; 85018; 85025; 85027; 86592; 86703; 86850; 86900; 86901; 88307; 90715; A9270; G0432; J2405; J2590; J2795; J7120

== ENCOUNTER 2022-01-09 07:21 | Outpatient (CLI) | payer BC, SELFPAY ==
[2022-01-09 09:17] VITALS: BMI 41.2
--- NOTE | 2022-01-09 09:58 | PC.NURSE ---
See obix notes.
--- NOTE | 2022-01-09 10:32 | P.PNOB_ITS ---
OB - Triage/Final Diagnosis Visit Information Date of evaluation: 01/09/22 Reason for evaluation: other (headache) Comments/Additional reasons for admission: I have assessed the risk for this patient, Kathy Wheeler, and determined that she would benefit from obs ervation care.
--- NOTE | 2022-02-02 12:56 | WPDANESEBPP ---
Anes - Epidural Blood Patch PN Date/Time: 01/09/22 08:50 Consent: I have discussed with the patient/family/POA, the rationale of a lumbar epidural autologous blood patch for the treatment of post-dural puncture headache (spinal headache), including associated potential risks, benefits, complications and side effects. I have also discussed more conservative treatment options such as intravenous hydration, caffeine and non-prescription analgesics. The patient/family/POA, understand(s) and wish(es) to proceed with epidural autologous blood patch as treatment for the patient's post-dural puncture headache. Time-Out: A pre-procedural Time-Out was completed immediately before starting the procedure and confirmed: Patient Identification, Site, Procedure, Patient Position and the Availability of Requisite Equipment. Clinical Indications: PDPH Epidural Insertion Note Patient position: sitting Skin prep: chlorhexidine Needle: 18 gauge Tuohy-Schliff. Blood obtained from left AC and injected 20 ml. Patient responded well. Technique: loss of resistance Skin anesthesia: lidocaine 1% Observations: tolerated well Complications: none
== END 2022-01-09 07:22 | disposition home or self-care (01) ==
LOC: ANHOBOP 07:27 → ANHLDR 01-14 07:06
PROVIDERS: PCP Student in an Organized Health Care Education/Training Program; Visit Provider Obstetrics & Gynecology
DX: O89.4 Spinal and epidural anesthesia-induced headache during the puerperium (principal)
CPT/HCPCS: 62273; 99199